=== PATIENT | male | born 1950 | race Caucasian/White ===

== ENCOUNTER → 2019-10-08 | Outpatient (CLI) | payer MEDICARE | END | disposition home or self-care (01) | LOC: LABPAT 12:38 | PROVIDERS: ATTEND Orthopaedic Surgery | DX: Z01.812 Encounter for preprocedural laboratory examination (principal) | CPT/HCPCS: 87070 ==

== ENCOUNTER → 2020-01-06 | Outpatient (CLI) | payer MEDICARE | END | disposition home or self-care (01) | LOC: LABWHC1 09:13 | PROVIDERS: ATTEND Orthopaedic Surgery | DX: Z01.812 Encounter for preprocedural laboratory examination (principal) | CPT/HCPCS: 87070 ==

== ENCOUNTER 2020-01-10 08:16 | Observation (INO) | payer MEDICARE ==
[2020-01-05 14:58] VITALS: BMI 33.3
--- NOTE | 2020-01-09 09:50 | HP ---
HISTORY AND PHYSICAL REASON FOR ADMISSION: Surgery scheduled for 01/10/2020. HISTORY OF PRESENT ILLNESS: Hakeem Gutierrez is a 69-year-old patient seen with symptomatic right knee osteoarthritis. We discussed options for treatment. He elected to proceed with right total knee arthroplasty. Consent regarding the procedure was obtained. Medical clearance was provided by Dr. Canales. PAST MEDICAL HISTORY: Hypertension. PAST SURGICAL HISTORY: Left total knee arthroplasty. MEDICATIONS: Xarelto, Zantac. ALLERGIES: None. SOCIAL HISTORY: Denies tobacco use. PHYSICAL EXAMINATION: Evaluation of the right knee: His range of motion is -6/seven to 115 degrees. Tenderness along the medial joint line. Crepitus along the medial and patellofemoral compartments range of motion. Ligaments stable. Hip rotation without pain. Distal neurovascular exam is intact. RADIOGRAPHS: Radiographs of the right knee revealed severe osteoarthritic changes. IMPRESSION: 1. Right knee osteoarthritis. 2. Hypertension. 3. History of clotting disorder. PLAN: Right total knee arthroplasty. Surgery is scheduled for 01/10/2020. MMODL / IJN: [id number] /
[~2020-01-10 08:16] MED LIST: ACETAMINOPHEN TAB 500 MG TAB PO ONE; MELOXICAM 7.5 MG TAB PO ONE; ROPIVACAINE 246.25 MG, EPINEPHrine 0.5 MG, KETOROLAC 30 MG, cloNIDine HCL/PF 80 MCG, WA... MISCELLANE ONE; TRANEXAMIC ACID 1,000 MG in SODIUM CHLORIDE 0.9% 100 ML IVPB ONE
[2020-01-10] MEDS ORDERED: LACTATED RINGERS 1,000 ML IV ONE ×3 (09:00→12:56)
[2020-01-10] MEDS ORDERED: fentaNYL (PF) 50 MCG/ML 2 ML AMP IV ONE (09:01)
[2020-01-10] MEDS ORDERED: MIDAZOLAM 2 MG/2 ML VIAL IV ONE (09:01)
[2020-01-10] MEDS ORDERED: ONDANSETRON 4 MG/2 ML VIAL IVP ONE (09:02)
[2020-01-10] MEDS ORDERED: DEXAMETHASONE SOD PHOSPHATE 10 MG/ML 1 ML VIAL IV ONE (09:02)
[2020-01-10] MEDS ORDERED: ROPIVACAINE 0.2%-NS ON-Q PUMP 1,090 MG, EMPTY PAIN BALL 1 EACH MISCELLANE PRN (09:21)
--- NOTE | 2020-01-10 09:21 | P.ANPRN ---
Procedure Note - Anesthesia - Nerve Block Performed Right Adductor Canal Infusion Time Out Performed: Yes Date of Procedure: 01/10/20 Procedure Start Time: 09:00 Procedure Stop Time: :09 Location of Patient: PreOp Indication: Requested by Surgeon Specifically requested for management of pain by DrAudrey: Andrews Mckinley Sedation Type: Sedate with meaningful contact maintained Preparation: Sterile Prep, Sterile Dressing Position: Supine Needle Types: Wefty Needle Gauge: 21 Ultrasound used to visualize needle placement: Yes Ultrasound used to observe medication spread: Yes Injectate: 0.5% Ropivacaine (see comment for volume) (20 ml) Blood Aspirated: No Pain Paresthesia on Injection Noted: No Resistance on Injection: Normal Image Stored and Saved: Yes Events: Uneventful and Well Tolerated
[2020-01-10] MEDS ORDERED: fentaNYL (PF) 50 MCG/ML 2 ML AMP ONE (10:09)
[2020-01-10] MEDS ORDERED: SODIUM CHLORIDE 0.9% 100 ML BAG ONE (10:09)
[2020-01-10] MEDS ORDERED: MIDAZOLAM 2 MG/2 ML VIAL ONE (10:09)
[2020-01-10] MEDS ORDERED: PROPOFOL 10 MG/ML 20 ML VIAL IV ONE (10:09)
[2020-01-10] MEDS ORDERED: TRANEXAMIC ACID 1,000 MG/10 ML VIAL ONE (10:09)
[2020-01-10] MEDS ORDERED: NALOXONE 0.4 MG/ML 1 ML VIAL IV PRN (11:54)
[2020-01-10] MEDS ORDERED: HYDROcodone/APAP 7.5-325MG 1 EACH TAB PO PRN (11:54)
[2020-01-10] MEDS ORDERED: HYDROmorphone 0.5 MG/0.5 ML SYRINGE IVP PRN ×3 (11:54)
[2020-01-10] MEDS ORDERED: ONDANSETRON 4 MG/2 ML VIAL IVP PRN (11:54)
[2020-01-10] MEDS ORDERED: HYDROcodone/APAP 5-325MG 1 EACH TAB PO PRN (11:54)
--- NOTE | 2020-01-10 11:55 | P.OP ---
Date of Procedure: 01/10/20 Preoperative Diagnosis: Right knee osteoarthritis Postoperative Diagnosis: Right knee osteoarthritis Procedure(s) Performed: Right total knee arthroplasty Implants: 1. Page attune size 8 right cruciate retaining cemented femur 2. Page attune size 9 fixed bearing cemented tibial baseplate 3. Page attune size 8 fixed bearing cruciate retaining 12 mm polyethylene tibial insert 4. Page attune 41 mm all polyethylene cemented patella Anesthesia: regional (Adductor canal catheter), local, spinal Surgeon: Andrews Mckinley Fib[employer] Optic Cable Splicer #1: Jimi Rdz Estimated Blood Loss (ml): 35 Pathology: other (Bone) Condition: stable Disposition: PACU Indications for Procedure: 69-year-old patient seen with symptomatic right knee osteoarthritis. After treatment options were discussed, he elected to proceed with total knee art hroplasty. Operative Findings: See description of procedure Description of Procedure: Patient was taken to the operative suite after having an adductor canal catheter placed by the department of anesthesia. Patient underwent a spinal anesthetic by the department of anesthesia. Patient was given preoperative IV intake antibiotics and TXA. A well-padded tourniquet was placed about the right lower extremity. The lower extremity was then prepped and draped in the normal sterile orthopedic fashion. The extremity was elevated, a tourniquet was insufflated to 300. A standard anterior incision was made sharply through skin. Dissection was taken down through the subcutaneous soft tissues down to the extensor mechanism. A medial arthrotomy was performed, patella was everted and knee was flexed. There was advanced osteoarthritis noted. I introduced my distal intramedullary femoral drill. I then introduced the distal femoral cutting jig. Demario ANDERSON secured the cutting jig with 2 pins. I held retractors in position while Demario ANDERSON performed the distal femoral resection through the guide area we now removed her distal femoral cutting guide. We now placed our 4-in-1 femoral cutting block and positioned and it was secured with 2 pins by Demario ANDERSON while I held the block in position. The distal femoral finishing was now completed. A proximal tibial cutting guide was positioned. I held the guide in the appropriate position with both hands well Demario ANDERSON inserted stabilizing pins into the guide. Proximal tibial cut was made. We now placed a trial femoral component into position, along with an appropriate size tibial tray and insert. We now took the knee through range of motion and had full extension good flexion and good overall soft tissue balance noted. The patella was everted and stabilized with 2 towel clips held by Demario ANDERSON while I performed a flush with patellar quad tendon utilizing a fresh sawblade. We templated the patella, appropriate drill holes were made. An appropriate trial patella was positioned, knee was taken through full range of motion with the patella tracking very nicely. The trial patella was removed. Drill holes were made through the femoral component. All trial components were removed after marking off the appropriate rotation of the tibia. Retractors w ere now positioned along the proximal tibia. An appropriate keel punch was made with the appropriate size tibial guide by myself on Demario ANDERSON assisted by holding retractors. At this point appropriate size implants were chosen and opened. The joint was irrigated copiously with pulse lavage mechanical irrigation. The posterior capsule was infiltrated with local analgesic. The wound was irrigated with pulse lavage mechanical irrigation. We mixed antibiotic methylmethacrylate. We placed the knee into flexion. We placed multiple retractors assisted by Demario ANDERSON to expose the proximal tibia. Once the methyl methacrylate was ready, the tibial component was cemented into place removing any excess methylmethacrylate form by both myself and Demario ANDERSON. The femoral component was cemented into place removing the removing any excess methylmethacrylate performed by both myself and Demario ANDERSON. We then inserted the appropriate size polyethylene tibial insert. We made sure that it was locked into position. We took the knee into full extension, and then back in a flexion making sure we had removed any excess methylmethacrylate. The patellar component was then cemented down and secured with clamp. Excess methylmethacrylate removed. We kept the knee in full extension, patellar clamp in position until methylmethacrylate had hardened. Once it had hardened the patellar clamp was removed. The knee was taken through full range of motion. The patella tracked nicely. There was good soft tissue balancing. The tourniquet was now released. Additional hemostasis was achieved via electrocautery. A second gram of TXA was given. The wound again was irrigated with pulse lavage mechanical irrigation. The superficial soft tissues were infiltrated local analgesic. The extensor mechanism was repaired with Vicryl. We checked the repair with range of motion and it was stable. The subcutaneous soft tissues were repaired with Vicryl in layers. The skin was approximated with pernio/Dermabond. Sterile dressings were applied followed by loose web roll and Arnulfo bandage. The patient was transferred to a bed, and taken to recovery in stable and satisfactory condition. Demario ANDERSON assisted with this complex procedure.
--- NOTE | 2020-01-10 12:40 | XR ---
EXAMINATION TYPE: XR knee limited RT DATE OF EXAM: 01/10/2020 COMPARISON: NONE HISTORY: 69-year-old male evaluation for postoperative abnormality and alignment TECHNIQUE: 2 views FINDINGS: Images show placement of right total knee arthroplasty. Both distal femoral and proximal tibial compo nents of the prosthesis are well seated without periprosthetic fracture. Alignment grossly anatomic. Anterior soft tissue swelling with scattered soft tissue air as well as intra-articular air in joint fluid compatible with recent operation. IMPRESSION: Uncomplicated postoperative appearance right total knee arthroplasty.
[2020-01-10] MEDS: SODIUM CHLORIDE 0.9% 1,000 ML IV SCH (16:08)
[2020-01-10] MEDS ORDERED: SENNOSIDES-DOCUSATE SODIUM 1 EACH TAB PO SCH (21:00)
[2020-01-11] MEDS: SODIUM CHLORIDE 0.9% 1,000 ML IV SCH (04:06)
--- NOTE | 2020-01-11 06:56 | P.PN ---
Progress Note - Text Progress Note Date: 01/11/20 Postoperative day # 1 status post total knee arthroplasty, under spinal anesthesia, and adductor canal catheter placed for postoperative analgesia, currently at ropivacaine 0.2% 8 mL per hour and continuous infusion, visual analogue scale is 1/10, patient using oral pain medication for breakthrough pain. Assessment and plan= Acute postoperative pain, adductor canal catheter for pain control, pain is well controlled we'll continue the same management.
[2020-01-11 07:22] VITALS: BP 122/65; PULSE 60; RESP 16; TEMP 98
[2020-01-11 08:18] LABS: Basophils % (A) 0 %; Eosinophils # (A) 0.1 k/uL (0-0.7); Eosinophils % (A) 0 %; HCT 38.9 % (39.0-53.0); HGB 13.1 gm/dL (13.0-17.5); Lymphocytes # (A) 0.7 k/uL (1.0-4.8); Lymphocytes % (A) 6 %; MCH 31.7 pg (25.0-35.0); MCHC 33.8 g/dL (31.0-37.0); Mean Platelet Volume 7.7; Monocytes # (A) 0.6 k/uL (0-1.0); Monocytes % (A) 6 %; Neutrophils # (A) 9.6 k/uL (1.3-7.7); Neutrophils % (A) 87 %; Platelet Count 210 k/uL (150-450); RBC 4.14 m/uL (4.30-5.90); RDW 13.7 % (11.5-15.5)
[2020-01-11] MEDS ORDERED: RIVAROXABAN 10 MG TAB PO SCH (09:00)
[2020-01-11] MEDS ORDERED: MELOXICAM 7.5 MG TAB PO SCH (09:00)
[2020-01-11] MEDS ORDERED: POTASSIUM CHLORIDE ER 20 MEQ TAB.ER PO SCH (09:15)
[2020-01-11] MEDS ORDERED: NADOLOL 20 MG TAB PO SCH (09:15)
--- NOTE | 2020-01-11 11:45 | P.PN ---
Subjective Progress Note Date: 01/11/20 Principal diagnosis: Status post right total knee arthroplasty Patient evaluated at bedside, he is resting comfortably. Pain is well- controlled. He's done very well with physical therapy. He denies any chest pain, shortness of breath, fever or chills. Objective - Vital Signs Vital signs: Vital Signs Temp 98 F 01/11/20 07:00 Pulse 60 01/11/20 07:00 Resp 16 01/11/20 07:00 BP 122/65 01/11/20 07:00 Pulse Ox 92 L 01/11/20 07:00 Intake & Output 01/10/20 01/11/20 01/11/20 18:59 06:59 18:59 Intake Total 1750 Output Total 35 400 Balance 1715 -400 Weight 118.4 kg Intake: IV 1750 Output: Urine 400 Estimated Blood Loss 35 Other: Voiding Method Toilet # Voids 1 - Exam Right lower extremity: Incision is clean, dry, and intact. The exofin fusion tape is in good condition. There is minimal soft tissue swelling and ecchymosis surrounding the medial and lateral aspects of the incision. Calf is soft, no tenderness with palpation. Plantar flexion, dorsiflexion, EHL, FHL are intact. Sensory exam to light touch throughout the extremity is intact, dorsal pedis pulses 2+. - Labs CBC & Chem 7: 01/11/20 07:46 Labs: Abnormal Lab Results - Last 24 Hours (Table) 01/11/20 Range/Units 07:46 WBC 11.0 H (3.8-10.6) k/uL RBC 4.14 L (4.30-5.90) m/uL Hct 38.9 L (39.0-53.0) % Neutrophils # 9.6 H (1.3-7.7) k/uL Lymphocytes # 0.7 L (1.0-4.8) k/uL Assessment and Plan Assessment: Status post right total knee arthroplasty Plan: Pain control, plan for discharge home on oral medication GI and DVT prophylaxis, he will resume Xarelto Wound care instructions discussed Home physical therapy and nursing after discharge Medical recommendations Plan for discharge home today Time with Patient: Less than 30
--- NOTE | 2020-01-11 11:47 | P.DS ---
Providers Date of admission: 01/10/2020 Expected date of discharge: 01/11/20 Attending physician: Andrews Mckinley Consults: 01/10/20 11:54 Consult Physician Routine Consulting Provider: Nilay Canales Reason/Comments: Medical management Do you want consulting provider notified?: Yes Primary care physician: Fadumo Canales [facility] Course: Date of admission: 01/10/2020 Date of discharge: 01/11/2020 Admission diagnosis: Status post right total knee arthroplasty Discharge diagnosis: Same Attending physician: Dr. Mckinley Surgical procedures: Right total knee arthroplasty Brief history: Patient is a 69-year-old male with a history of progressive primary right knee osteoarthritis. At this point patient has failed conservative treatment measures and has opted to proceed with a elective right total knee arthroplasty. Hospital course: Details of patient's surgery can be found in operative report. Patient tolerated the procedure well and was subsequently transported to orthopedic floor. Patient's orthopeidc and medical care was provided daily. Patient had daily laboratory tests performed for evaluation of overall blood counts. Patient had daily physical therapy to include strengthening range of motion as well as education with walker ambulation. Patient had daily CPM usage as part of their physical therapy program. Patient was treated with Lovenox for their postoperative DVT prophylaxis during their inpatient stay. Patient was noted to have a relatively uneventful postoperative course. Patient reported satisfactory pain control with oral pain medications by postoperative day 0. Patient showed satisfactory progress with physical therapy. Patient moved steadily through the program and had no difficulty meeting the goals by postoperative day 1. Given patient's otherwise satisfactory course and having met physical therapy goals, plan is to discharge patient home on postoperative day 1. Discharge condition/disposition: Patient will be discharged home in stable condition. Discharge medications: Instructions are given on resumption of patient's normal daily medications per primary care recommendation, in addition patient will be prescribed [place] 5 mg/325 mg, tramadol 50 mg, Colace 100 mg. Discharge instructions: 1. Wound care and infection precautions, [keep incision dry and covered while showering], no lotions, creams, moisturizers. No soaking, tubs, pools, hottubs. Do not scrub over the incision. 2. Weight-bear [as tolerated] with walker / cane until follow-up. 3. Ice and elevate when necessary. Do not exceed 20 minutes per hour with ice pack. 4. Utilize compression sleeve until seen at first follow up appointment. 5. Visiting nursing care. 6. Home physical therapy [including home CPM]. 7. Pain meds and anticoagulants per prescription. 8. Pain medication has potential to cause constipation. Increase oral fluid and fiber intake. Contact primary care provider if you have not had a bowel movement within 48 hours after discharge 9. No anti-inflammatory medication until discussed at first post operative visit, this including Motrin, Aleve, Mobic, Diclofenac. 10. Follow up in office at 2 weeks postop with Demario Rdz PA-C 11. Follow up with your primary care doctor 7-10 days after discharge. 12. Contact [facility] with any questions, . Procedures: Right total knee arthroplasty Patient Condition at Discharge: Good Plan - Discharge Summary Discharge Rx Participant: Yes New Discharge Prescriptions: New Docusate [Colace] 100 mg PO DAILY #30 capsule Hydrocodone/Acetaminophen [[place] 5-325] 1 each PO Q6HR PRN #28 tab PRN Reason: Pain traMADol HCl [Ultram] 50 mg PO Q6H PRN #28 tab PRN Reason: Pain No Action Potassium Chloride [Klor-Con 20] 20 meq PO DAILY Folic Acid 1 mg PO DAILY Atorvastatin [Lipitor] 20 mg PO HS Nadolol [Corgard] 20 mg PO DAILY Famotidine 40 mg PO DAILY Rivaroxaban [Xarelto] 20 mg PO DAILY Multivitamin [Multivitamins Adult Gummies] 1 each PO DAILY Cholecalciferol (Vitamin D3) [Vitamin D3] 2,000 unit PO DAILY Discharge Medication List Folic Acid 1 mg PO DAILY 03/26/15 [History] Potassium Chloride [Klor-Con 20] 20 meq PO DAILY 03/26/15 [History] Atorvastatin [Lipitor] 20 mg PO HS 07/09/15 [History] Cholecalciferol (Vitamin D3) [Vitamin D3] 2,000 unit PO DAILY 01/05/20 [History] Famotidine 40 mg PO DAILY 01/05/20 [History] Multivitamin [Multivitamins Adult Gummies] 1 each PO DAILY 01/05/20 [History] Nadolol [Corgard] 20 mg PO DAILY 01/05/20 [History] Rivaroxaban [Xarelto] 20 mg PO DAILY 01/05/20 [History] Docusate [Colace] 100 mg PO DAILY #30 capsule 01/11/20 [Rx] Hydrocodone/Acetaminophen [[place] 5-325] 1 each PO Q6HR PRN #28 tab 01/11/20 [Rx] traMADol HCl [Ultram] 50 mg PO Q6H PRN #28 tab 01/11/20 [Rx] Follow up Appointment(s)/Referral(s): Nilay Canales MD [STAFF PHYSICIAN] - 01/17/20 12:15 pm (At [facility]) Jimi Rdz PAC [PHYSICIAN [facility]] - 01/26/20 2:30 pm Activity/Diet/Wound Care/Special Instructions: [facility]: #[phone] Orthopedic Discharge Instructions: 1. Wound care and infection precautions, keep incision dry and covered while showering, no lotions, creams, moisturizers. No soaking, pools, hot tubs. Do not scrub over incision. 2. Weight-bear as tolerated with walker / cane until follow-up. 3. Ice and elevate when necessary. Do not exceed 20 minutes per hour with ice pack. 4. Utilize compression sleeve until seen at first follow up appointment. 5. Pain meds and anticoagulants per prescription. 6. Pain medication has potential to cause constipation. Increase oral fluid and fiber intake. Contact primary care provider if you have not had a bowel movement within 48 hours after discharge. 7. No anti-inflammatory medication until discussed at first post operative visit, this including Motrin, Aleve, Mobic, Diclofenac. 8. Follow up in office at 2 weeks postop with Demario Rdz PA-C 9. Follow up with your primary care doctor 7-10 days after discharge. 10. Contact [facility] with any questions, . Discharge Disposition: HOME WITH HOME HEALTH SERVICES
[2020-01-11] MEDS ORDERED: ATORVASTATIN 20 MG TAB PO SCH (21:00)
--- NOTE | 2020-01-11 22:38 | P.CONS ---
History of Present Illness - Reason for Consult Consult date: 01/11/20 medical eval - Chief Complaint OA - History of Present Illness Hakeem Gutierrez is a 69 yo M with hx DVT, HLD who is admitted for scheduled R TKA with Dr. Mckinley. He is POD#1 and feeling well, denies fever, chills, chest pain, shortness of breath, or leg swelling. He has minimal pain with ambu lation and is working with PT with good ROM. Review of Systems All systems: negative Constitutional: Denies chills, Denies fever Eyes: denies blurred vision, denies pain Ears, nose, mouth and throat: Denies headache, Denies sore throat Cardiovascular: Denies chest pain, Denies shortness of breath Respiratory: Denies cough Gastrointestinal: Denies abdominal pain, Denies diarrhea, Denies nausea, Denies vomiting Musculoskeletal: Reports as per HPI, Reports gait dysfunction, Denies myalgias Integumentary: Denies pruritus, Denies rash Neurological: Denies numbness, Denies weakness Psychiatric: Denies anxiety, Denies depression Endocrine: Denies fatigue, Denies weight change Past Medical History Past Medical History: Cancer, Deep Vein Thrombosis (DVT), Hyperlipidemia, Pulmonary Embolus (PE) Additional Past Medical History / Comment(s): 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 Past Surgical History: Joint Replacement Additional Past Surgical History / Comment(s): left knee replacement, skin cancer removed from face, Past Anesthesia/Blood Transfusion Reactions: No Reported Reaction Additional Past Anesthesia/Blood Transfusion Reaction / Comm: developed c-diff and PE/DVT after previous knee replacement Past Psychological History: No Psychological Hx Reported Smoking Status: Never smoker Past Alcohol Use History: Rare Past Drug Use History: None Reported - Past Family History Mother Family Medical History: Cancer Additional Family Medical History / Comment(s): pancreatic Medications and Allergies Home Medications Medication Instructions Recorded Confirmed Type Folic Acid 1 mg PO DAILY 03/26/15 01/05/20 History Potassium Chloride [Klor-Con 20] 20 meq PO DAILY 03/26/15 01/05/20 History Atorvastatin [Lipitor] 20 mg PO HS 07/09/15 01/05/20 History Cholecalciferol (Vitamin D3) 2,000 unit PO DAILY 01/05/20 01/05/20 History [Vitamin D3] Famotidine 40 mg PO DAILY 01/05/20 01/05/20 History Multivitamin [Multivitamins Adult 1 each PO DAILY 01/05/20 01/05/20 History Gummies] Nadolol [Corgard] 20 mg PO DAILY 01/05/20 01/05/20 History Rivaroxaban [Xarelto] 20 mg PO DAILY 01/05/20 01/05/20 History Docusate [Colace] 100 mg PO DAILY #30 capsule 01/11/20 Rx Hydrocodone/Acetaminophen [[place] 1 each PO Q6HR PRN #28 tab 01/11/20 Rx 5-325] traMADol HCl [Ultram] 50 mg PO Q6H PRN #28 tab 01/11/20 Rx Allergies Allergy/AdvReac Type Severity Reaction Status Date / Time No Known Allergies Allergy Verified 01/10/20 08:40 Physical Exam Vitals: Vital Signs Temp Pulse Pulse Resp BP Pulse Ox 01/11/20 07:00 98 F 60 16 122/65 92 L 01/11/20 01:09 97.9 F 78 20 113/66 98 Intake and Output 01/11/20 01/11/20 01/11/20 06:59 14:59 22:59 Output Total 400 Balance -400 Output: Urine 400 Other: # Voids 1 General: well nourished, well developed, NAD. Vitals reviewed Eyes: PERRL, EOMI, conjunctiva normal HENT: normocephalic, mucus membranes moist Neck: supple, no JVD Lungs: normal respiratory effort, no wheezes or rales CV: Regular rate and rhythm, no murmur. Peripheral pulses 2+ Abdomen: soft, nondistended, no organomegaly Lymph: no cervical or axillary LAD Skin: warm and dry. R knee c/d/i Neuro: A&Ox3, normal mood and affect Results CBC & Chem 7: 01/11/20 07:46 Labs: Abnormal Lab Results - Last 24 Hours (Table) 01/11/20 Range/Units 07:46 WBC 11.0 H (3.8-10.6) k/uL RBC 4.14 L (4.30-5.90) m/uL Hct 38.9 L (39.0-53.0) % Neutrophils # 9.6 H (1.3-7.7) k/uL Lymphocytes # 0.7 L (1.0-4.8) k/uL Assessment and Plan (1) Osteoarthritis of right knee Status: Acute Code(s): M17.11 - UNILATERAL PRIMARY OSTEOARTHRITIS, RIGHT KNEE SNOMED Code(s): 027561646614710 (2) Status post right knee replacement Status: Acute Code(s): Z96.651 - PRESENCE OF RIGHT ARTIFICIAL KNEE JOINT SNOMED Code(s): 8565017133077 (3) History of DVT (deep vein thrombosis) Status: Acute Code(s): Z86.718 - PERSONAL HISTORY OF OTHER VENOUS THROMBOSIS AND EMBOLISM SNOMED Code(s): 366642490 Plan: 1. OA of R knee s/p R TKA. Management per ortho. Encourage PT 2. History DVT. Cover with lovenox postop. Resume xarelto 3. HLD. Resume lipitor
== END 2020-01-11 12:44 | disposition home health service (06) ==
LOC: OR 08:16 → 4SSUR 11:45 → OR 01-11 10:29 → 4SSUR 01-11 10:29
PROVIDERS: ADMIT Orthopaedic Surgery; ATTEND Orthopaedic Surgery
DX: M17.11 Unilateral primary osteoarthritis, right knee (principal); I10 Essential (primary) hypertension; E78.5 Hyperlipidemia, unspecified; K21.9 Gastro-esophageal reflux disease without esophagitis; Z79.01 Long term (current) use of anticoagulants; Z79.899 Other long term (current) drug therapy; Z86.718 Personal history of other venous thrombosis and embolism; Z96.652 Presence of left artificial knee joint; Z86.711 Personal history of pulmonary embolism; Z86.19 Personal history of other infectious and parasitic diseases; Z85.828 Personal history of other malignant neoplasm of skin; Z98.890 Other specified postprocedural states; Z91.89 Other specified personal risk factors, not elsewhere classified; Z82.49 Family history of ischemic heart disease and other diseases of the circulatory system; Z80.0 Family history of malignant neoplasm of digestive organs
CPT/HCPCS: 27447; 97110; 97161; 64448; 76942; 85025; 88300; 73560; G0378; C1776; C1713; J2250; J0171; J1100; J0690; J2405; J3010; J1885; J2795 ×2; J2704; J0735

== ENCOUNTER 2022-04-10 08:07 | Day surgery (SDC) | payer MEDICARE ==
[2022-04-09 08:57] VITALS: BMI 28.2
[~2022-04-10 08:07] MED LIST changes: -ACETAMINOPHEN TAB 500 MG TAB PO ONE; +LIDOCAINE 1% (10MG/ML) FOR IV START INTRADERMA PRN; -MELOXICAM 7.5 MG TAB PO ONE; -ROPIVACAINE 246.25 MG, EPINEPHrine 0.5 MG, KETOROLAC 30 MG, cloNIDine HCL/PF 80 MCG, WA... MISCELLANE ONE; -TRANEXAMIC ACID 1,000 MG in SODIUM CHLORIDE 0.9% 100 ML IVPB ONE
[2022-04-10] MEDS: LACTATED RINGERS 1,000 ML IV SCH ×2 (08:51→09:05)
[2022-04-10 09:07] VITALS: RESP 16; TEMP 97.1
[2022-04-10] MEDS ORDERED: PROPOFOL 10 MG/ML 20 ML VIAL IV ONE (09:37)
--- NOTE | 2022-04-10 09:53 | P.PCN ---
Date of Procedure: 04/10/22 Procedure(s) Performed: BRIEF HISTORY: Patient is a 72-year-old pleasant white male scheduled for an elective colonoscopy as a part of evaluation of prior history of colon polyps. Last colonoscopy was 5 years ago. PROCEDURE PERFORMED: Colonoscopy with snare polypectomy. PREOPERATIVE DIAGNOSIS: History Of colon polyps. IV sedation per Anesthesia. PROCEDURE: After informed consent was obtained, the patient, was brought into the endoscopy unit. IV sedation was administered by Anesthesia under continuous monitoring. Digital rectal examination was normal. Initially the Olympus CF-160 flexible video colonoscope was then inserted in the rectum, gradually advanced into the cecum without any difficulty. Careful examination was performed as the scope was gradually being withdrawn. Ileocecal valve and the appendiceal orifice were visualized and appeared normal. Prep was poor in some areas of the colon.. Mucosa of the cecum, had a 1.5 cm broad-based polyp removed by snare polypectomy. ascending colon, transverse colon, descending colon, sigmoid colon, and rectum appeared normal. Retroflexion was performed in the rectum and no lesions were seen. The patient tolerated the procedure well. IMPRESSION: 1.5 and admitted broad-based cecal polyp status post polypectomy Rest of the colon appeared normal RECOMMENDATIONS: Findings of this examination were discussed with the patient well as his family. He was advised to follow with the biopsy result. If the biopsies adenoma he can have a repeat colonoscopy in 3 years..
[2022-04-10 10:12] VITALS: BP 117/77; PULSE 64
== END 2022-04-10 10:47 | disposition home or self-care (01) ==
LOC: ORWHC2ENDO 08:07
PROVIDERS: ATTEND Internal Medicine Gastroenterology
DX: Z12.11 Encounter for screening for malignant neoplasm of colon (principal); D12.0 Benign neoplasm of cecum; Z86.010 Personal history of colon polyps; I10 Essential (primary) hypertension; E78.5 Hyperlipidemia, unspecified; Z86.718 Personal history of other venous thrombosis and embolism; Z86.711 Personal history of pulmonary embolism; Z79.01 Long term (current) use of anticoagulants; Z79.899 Other long term (current) drug therapy
CPT/HCPCS: 88305; 45385; J2704